=== PATIENT | female | born 1990 | race Caucasian/White ===

== ENCOUNTER → 2016-05-06 | Day surgery (SDC) | payer OTHER ==
[~2016-05-06] MED LIST: KETOROLAC TROMETHAMINE 30 MG/ML (IVP) VIAL IV PUSH ONE; LACTATED RINGER'S 1000 ML INJ 1,000 ML ONE; MEPERIDINE HCL 50 MG/ML VIAL ONE; MIDAZOLAM HCL 2 MG/2 ML VIAL ONE; ONDANSETRON HCL 4 MG/2 ML VIAL IV PUSH ONE; PROPOFOL 200 MG/20 ML AMP IV ONE; ceFAZolin INJ 1,000 MG VIAL ONE
--- NOTE | 2016-05-07 17:58 | MP ---
cc: PAYTON OSORIO M.D. DATE OF SURGERY 05/06/2016 PREOPERATIVE DIAGNOSIS Pelvic pain, endometrial polyp. POSTOPERATIVE DIAGNOSIS Pelvic pain, endometrial polyp, endometriosis of the pelvis. PROCEDURE 1. Hysteroscopy, 2. Resection of endometrial polyp 3. Laparoscopy, fulguration of endometriosis and uterosacral ligaments 4. Lysis of adhesions. SURGEON Chyna Osorio MD ANESTHESIA General. ESTIMATED BLOOD LOSS 30 mL COMPLICATIONS None. FINDINGS The patient had a uterus that was of normal size, shape and sounded to 8.5 cm. There was a benign-appearing 1 x 1.5 cm polyp coming off the left upper anterior fundus. The remainder of the endocervical canal and endometrium was unremarkable. The fallopian tubes were unremarkable. The ovaries were unremarkable. There were several peritoneal windows that were examined closely and the one in the right posterior cul-de-sac did have an implant of endometriosis within it when we inverted the peritoneum. There was also a very small superficial implant of endometriosis in the left ovarian fossa. The appendix, liver, upper abdominal organs were all grossly normal. DESCRIPTION OF PROCEDURE The patient was brought to the operating room, following general anesthesia was placed in dorsal lithotomy position. Her vagina, abdomen and perineum were prepped and draped. The cervix was grasped with a single-tooth tenaculum and dilated to allow passage of the hysteroscope. Hysteroscopic findings were as noted above. The Myosure device was brought into place and the polyp was easily resected. We were then able to see that the remainder of the endometrial cavity was unremarkable and both tubal ostiums were seen. We then removed the Myosure device and placed a HUMI catheter into the uterus. The bladder was drained with a red rubber catheter. A 1 cm subumbilical skin incision was made. The Veress needle was inserted and 3 liters of CO2 was infused into the abdomen. Veress needle was then removed and the laparoscope was placed without difficulty. A second and third puncture site were created under direct visualization. The findings were as noted above. We used the laparoscopic scissors to fulgurate the endometrial implants that were noted above and then we cut and fulgurated the proximal uterosacral ligaments to provide her additional pain relief. Some minor adhesions from the sigmoid colon to the left round ligament were then lysed. With no other pathology present, all instruments were removed and the CO2 gas was allowed to escape. The incisions were then closed subcuticular 4-0 Vicryl stitch. The patient was then taken to the recovery room in good condition with all counts correct. She will be discharged home when stable and alert to follow up in one week in our office. Discharge medication is Percocet. She was given instructions on physical activity and instructed to resume regular diet as tolerated. MD CHRISTINA Foreman/ /8:54 AM /5:44 PM
== END | disposition home or self-care (01) ==
LOC: ESDC 06:29
PROVIDERS: ATTEND Obstetrics & Gynecology
DX: R10.2 Pelvic and perineal pain (principal); N84.0 Polyp of corpus uteri; N80.3 Endometriosis of pelvic peritoneum
CPT/HCPCS: 00840; 00952; 58558; 58662; 88305; J0690; J1885; J2175; J2250; J2405; J3010; J7120